=== PATIENT | female | born 1990 | race Caucasian/White ===

== ENCOUNTER 2024-09-18 16:14 | Emergency (ER) | payer MEDICAID, OTHER ==
[~2024-09-18] VITALS: Ht 167.6 cm; Wt 68.0 kg
[~2024-09-18 16:14] MED LIST: ACET-2708 MT; P20 MT
[2024-09-18 16:35] VITALS: O2SAT 98
[2024-09-18] MEDS ORDERED: CIPHCO EACH EAR (17:51)
[2024-09-18] MEDS ORDERED: IBUP-2029 MT (17:51)
[2024-09-18 18:23] VITALS: BP 110/67; PULSE 70; RESP 14; TEMP 37; O2SAT 98
== END 2024-09-18 18:22 | disposition home or self-care (01) ==
LOC: ER 16:14
DX: H60.8X3 Other otitis externa, bilateral (principal); Z79.899 Other long term (current) drug therapy
CPT/HCPCS: 99283